=== PATIENT | female | born 1980 | race Caucasian/White ===

== ENCOUNTER 2018-07-19 10:35 | Inpatient (IN) | payer OTHER ==
[~2018-07-19] VITALS: Ht 165 cm; Wt 97.5 kg
[2018-07-19] MEDS ORDERED: RINGERS SOLUTION,LACTATED 1,000 ML IV ONE (10:40)
[2018-07-19] MEDS ORDERED: METOCLOPRAMIDE HCL 5 MG/ML 2 ML VIAL IVP ONE (10:45)
[2018-07-19] MEDS ORDERED: CITRIC ACID/SODIUM CITRATE 30 ML SOLUTION UDCUP PO ONE (10:45)
[2018-07-19] MEDS ORDERED: PREN1TAB80 PO (11:06)
[2018-07-19 11:17] LABS: BASOPHILS % (AUTO) 0.6 % (0.0-2.0); EOSINOPHILS % (AUTO) 0.5 % (1.0-6.0); HEMOGLOBIN 12.9 g/dL (12.0-16.0); LYMPHOCYTES # (AUTO) 2.1 K/uL (1.0-4.8); LYMPHOCYTES % (AUTO) 18.7 % (22.0-44.0); MEAN CORPUSCULAR HGB CONC 35.9 G/dL (31.0-37.0); MEAN CORPUSCULAR VOLUME 92 fL (80-100); MONOCYTES # (AUTO) 0.6 K/uL (0.1-1.0); MONOCYTES % (AUTO) 5.2 % (2.0-9.0); NEUTROPHILS # (AUTO) 8.5 K/uL (1.8-7.7); PLATELET COUNT (AUTO)-OB 224 K/uL (150-450); RED BLOOD CELL COUNT(AUTO) 3.92 MIL/uL (4.00-5.20); RED CELL DISTRIBUTION WIDTH 13.4 % (11.5-14.5)
[2018-07-19] MEDS ORDERED: FentaNYL CITRATE-PF 100 MCG/2 ML VIAL ONE (11:24)
[2018-07-19] MEDS ORDERED: ACETAMINOPHEN 1000 MG/ISO-OSM 100 ML IV ONE (11:24)
[2018-07-19] MEDS ORDERED: MORPHINE SULFATE/PF 0.5 MG/ML 10 ML AMP ONE (11:24)
[2018-07-19] MEDS ORDERED: 0.9% SODIUM CHLORIDE 10 ML VIAL IVP ONE (12:00)
[2018-07-19] MEDS ORDERED: OXYTOCIN 10 UNITS/ML VIAL IM ONE (12:00)
[2018-07-19] MEDS ORDERED: EPHEDrine SULFATE 50 MG/ML VIAL IM ONE (12:00)
[2018-07-19] MEDS ORDERED: MORPHINE SULFATE 4 MG/ML SYRINGE IVP PRN (12:45)
[2018-07-19] MEDS ORDERED: NALBUPHINE HCL 10 MG/ML VIAL IVP PRN ×3 (12:45)
[2018-07-19] MEDS ORDERED: DiphenhydrAMINE HCL 50 MG/ML VIAL IVP PRN ×2 (12:45)
[2018-07-19] MEDS ORDERED: FentaNYL CITRATE-PF 100 MCG/2 ML VIAL IVP PRN (12:45)
[2018-07-19] MEDS ORDERED: NALOXONE HCL 0.4 MG/ML VIAL IVP PRN (12:45)
[2018-07-19] MEDS ORDERED: ONDANSETRON HCL 4 MG/2 ML VIAL IVP PRN ×2 (12:45)
[2018-07-19] MEDS ORDERED: DEXAMETHASONE SOD PHOS 4 MG/ML VIAL IVP PRN (12:45)
[2018-07-19] MEDS ORDERED: OXYTOCIN 30 UNITS/LACT RINGERS 500 ML IV ONE (15:45)
[2018-07-19] MEDS ORDERED: LANOLIN 7 GM OINTMENT TP PRN (15:45)
[2018-07-19] MEDS ORDERED: OxyCODONE HCL/ACETAMINOPHEN 5-325 MG TABLET PO PRN (15:45)
[2018-07-19] MEDS: RINGERS SOLUTION,LACTATED 1,000 ML IV SCH ×2 (16:12→23:06)
[2018-07-19] MEDS ORDERED: OXYGEN THERAPY IH SCH ×2 (20:00)
[2018-07-19] MEDS: ACETAMINOPHEN 1000 MG/ISO-OSM 100 ML IV SCH (22:03)
[2018-07-19] MEDS: MAGNESIUM HYDROXIDE SUSPENSION 30 ML UDCUP PO SCH (22:03)
[2018-07-20] MEDS: ACETAMINOPHEN 1000 MG/ISO-OSM 100 ML IV SCH (04:54)
[2018-07-20 06:22] LABS: BASOPHILS % (AUTO) 0.3 % (0.0-2.0); EOSINOPHILS % (AUTO) 0.6 % (1.0-6.0); HEMATOCRIT 29.8 % (36-46); HEMOGLOBIN 10.7 g/dL (12.0-16.0); LYMPHOCYTES # (AUTO) 2.1 K/uL (1.0-4.8); LYMPHOCYTES % (AUTO) 19.5 % (22.0-44.0); MEAN CORPUSCULAR HEMOGLOBIN 33.2 pg (26.0-34.0); MEAN CORPUSCULAR VOLUME 92 fL (80-100); MONOCYTES # (AUTO) 0.7 K/uL (0.1-1.0); MONOCYTES % (AUTO) 6.4 % (2.0-9.0); NEUTROPHILS # (AUTO) 7.9 K/uL (1.8-7.7); NEUTROPHILS % (AUTO) 73.2 % (40.0-70.0); PLATELET COUNT (AUTO)-OB 165 K/uL (150-450); RED BLOOD CELL COUNT(AUTO) 3.22 MIL/uL (4.00-5.20); RED CELL DISTRIBUTION WIDTH 13.3 % (11.5-14.5)
[2018-07-20] MEDS: MAGNESIUM HYDROXIDE SUSPENSION 30 ML UDCUP PO SCH ×2 (09:39→22:32)
[2018-07-20] MEDS: OxyCODONE HCL/ACETAMINOPHEN 5-325 MG TABLET PO PRN ×2 (12:43→16:58)
[2018-07-20] MEDS: IBUPROFEN 800 MG TABLET PO PRN ×2 (12:43→18:34)
[2018-07-21] MEDS: IBUPROFEN 800 MG TABLET PO PRN ×3 (00:38→13:19)
[2018-07-21] MEDS ORDERED: IBUP-2070 PO (13:56)
[2018-07-21] MEDS ORDERED: PERCT PO (13:58)
[2018-07-21] MEDS ORDERED: FERR-89 PO (14:00)
[2018-07-21] MEDS ORDERED: DSS100 PO (14:01)
== END 2018-07-21 15:20 | disposition home or self-care (01) | DRG 785 ==
LOC: OBSVTOIN 10:35 → 4S 10:35
PROVIDERS: ADMIT Obstetrics & Gynecology; ATTEND Obstetrics & Gynecology
PROC: 10D00Z1 Extraction of Products of Conception, Low, Open Approach (ICD-10-PCS; principal; 2018-07-19)
PROC: 0UB70ZZ Excision of Bilateral Fallopian Tubes, Open Approach (ICD-10-PCS; 2018-07-19)
DX: O34.211 Maternal care for low transverse scar from previous cesarean delivery (principal); Z30.2 Encounter for sterilization; Z3A.39 39 weeks gestation of pregnancy; Z37.0 Single live birth
CPT/HCPCS: 86850; 86900; 86901; 87081; 88302; J0131; J0690; J2274; J2590; J2765; J3010; J3490; J7120